=== PATIENT | female | born 1965 | race American Indian/Alaskan Native ===

== ENCOUNTER 2020-03-14 01:46 | Emergency (ER) | payer SELFPAY ==
--- NOTE | 2020-03-14 01:53 | Emergency Department Report ---
ED Altered Mental Status HPI - General Chief Complaint: Altered Mental Status Stated Complaint: UNRESPONSIVE PUI?: No Time Seen by Provider: 03/14/20 01:46 Source: EMS Mode of arrival: Stretcher Limitations: Altered Mental Status, Physical Limitation - History of Present Illness Initial Comments: Patient is a 55-year-old female that presents emergency room with altered mental status and decreased responsiveness. Report received from EMS. EMS states the patient's initial blood pressure is 238/120. Patient was found unresponsive. Patient is responsive only to painful stimuli. Last known well time 9:30 PM 03/13/2020. Patient had a stroke 2 weeks ago and was seen at [facility]. Complaint: altered mental status, decreased responsiveness -: Sudden - Related Data Home Medications Medication Instructions Recorded Confirmed Last Taken Aspirin 81 mg PO DAILY 03/14/20 03/14/20 Unknown AtorvaSTATin 80 mg PO DAILY 03/14/20 03/14/20 Unknown Lisinopril 10 mg PO DAILY 03/14/20 03/14/20 Unknown Ticagrelor 60 mg PO BID 03/14/20 03/14/20 Unknown glipiZIDE 5 mg PO BID 03/14/20 03/14/20 Unknown metFORMIN 1,000 mg PO BID 03/14/20 03/14/20 Unknown Allergies Allergy/AdvReac Type Severity Reaction Status Date / Time No Known Allergies Allergy Verified 03/14/20 02:38 ED Review of Systems ROS: Stated complaint: UNRESPONSIVE Other details as noted in HPI Comment: Unobtainable due to pts medical conditions ED Past Medical Hx - Past Medical History Previous Medical History?: Yes Hx Hypertension: Yes Hx CVA: Yes - Surgical History Past Surgical History?: No - Family History Family history: no significant - Social History Smoking Status: Unknown if ever smoked Substance Use Type: None - Medications Home Medications: Home Medications Medication Instructions Recorded Confirmed Last Taken Type Aspirin 81 mg PO DAILY 03/14/20 03/14/20 Unknown History AtorvaSTATin 80 mg PO DAILY 03/14/20 03/14/20 Unknown History Lisinopril 10 mg PO DAILY 03/14/20 03/14/20 Unknown History Ticagrelor 60 mg PO BID 03/14/20 03/14/20 Unknown History glipiZIDE 5 mg PO BID 03/14/20 03/14/20 Unknown History metFORMIN 1,000 mg PO BID 03/14/20 03/14/20 Unknown History ED Physical Exam - General Limitations: Altered Mental Status, Physical Limitation General appearance: obtunded - Head Head exam: Present: atraumatic, normocephalic - Eye Eye exam: Present: normal appearance, other (Pupils are unequal) - ENT ENT exam: Present: mucous membranes dry - Neck Neck exam: Present: normal inspection - Respiratory Respiratory exam: Present: normal lung sounds bilaterally. Absent: respiratory distress - Cardiovascular Cardiovascular Exam: Present: regular rate, normal rhythm. Absent: systolic murmur, diastolic murmur, rubs, gallop - GI/Abdominal GI/Abdominal exam: Present: soft, normal bowel sounds. Absent: distended, tenderness, guarding - Extremities Exam Extremities exam: Present: normal inspection - Back Exam Back exam: Present: normal inspection - Neurological Exam Neurological exam: Present: altered - Expanded Neurological Exam Expanded Best Eye Response (Lee): (1) no response Best Motor Response (Lee): (4) withdraws to pain Best Verbal Response (Lee): (1) no verbal response Haley Total: 6 - Psychiatric Psychiatric exam: Present: normal affect, normal mood - Skin Skin exam: Present: warm, dry, intact, normal color. Absent: rash - Assessment Assessment Interval: Baseline - Level of Consciousness 1a. Level of Consciousness: coma/unresponsive - LOC Questions 1b. LOC Questions: aphasic - LOC Command 1c. LOC Commands: performs no tasks correctly - Best Gaze 2. Best Gaze: normal - Visual 3. Visual: no visual loss - Facial Palsy 4. Facial Palsy: normal symmetrical movement - Motor Arm 5a. Motor Arm Left: no movement 5b. Motor Arm Right: no movement - Motor Leg 6a. Motor Leg Left: no movement 6b. Motor Leg Right: no movement - Limb Ataxia 7. Limb Ataxia: absent - Sensory 8. Sensory: normal - Best Language 9. Best Language: coma/unresponsive - Dysarthria 10. Dysarthria: mute/anarrthric - Extinction and Inattention 11. Extinction/Inattention: no abnormality - Scoring Total Score: 28 Stroke Severity: Severe Stroke ED Course Vital Signs 03/14/20 03/14/20 03/14/20 02:42 02:50 04:13 Temperature 93 F L Pulse Rate 103 H 106 H 111 H Respiratory 16 16 Rate Blood Pressure 130/74 130/74 Blood Pressure 101/57 [Left] O2 Sat by Pulse 99 100 100 Oximetry - Reevaluation(s) Reevaluation #1: Initial evaluation done. Code stroke initiated. Nicardipine drip ordered. 03/14/20 01:46 Reevaluation #2: Patient back from CT. Patient will be intubated. 03/14/20 02:01 Patient is better without difficulty. See procedure note. 03/14/20 02:20 Reevaluation #3: Patient's blood pressure is improving with nicardipine drip. 03/14/20 02:36 Reevaluation #4: Patient's blood pressure continues to improve. 03/14/20 02:47 Patient is on the vent. Patient is on Ativan drip. Patient has already received Keppra. Patient is on Cardene drip and blood pressure is controlled. 03/14/20 03:25 - Consultations Consultation #1: I discussed case with [facility] transfer truchas and [facility] is on diversion. 03/14/20 02:34 I discussed case with [facility] and [facility]. [facility] and [facility] are on neuro ICU diversion. 03/14/20 03:50 Consultation #2: I discussed case with Dr. Owen at [facility]. Dr. Owen is for the patient to be transferred. 03/14/20 03:10 - Intubation Time Out Performed: Yes Sedative: Etomidate Paralytic: Rocuronium Laryngoscope: fiberoptic video scope Size: 3 ET Tube Size: 7.5 Tube Secured Depth (cm): 22 Tube Secured Location: teeth Tube Placement Confirmation: visualized tube passing t, equal breath sounds bilat, no breath sounds over epi, confirmation by capnometr Patient Tolerated Procedure: well, no complications Intubation Complications: none - Lab Data Result diagrams: 03/14/20 02:43 03/14/20 02:43 Lab Results 03/14/20 03/14/20 03/14/20 Range/Units 02:43 02:43 02:43 WBC 30.0 H (4.5-11.0) K/mm3 RBC 3.74 (3.65-5.03) M/mm3 Hgb 11.6 (10.1-14.3) gm/dl Hct 34.0 (30.3-42.9) % MCV 91 (79-97) fl MCH 31 (28-32) pg MCHC 34 (30-34) % RDW 14.4 (13.2-15.2) % Plt Count 526 H (140-440) K/mm3 Lymph % (Auto) 14.1 (13.4-35.0) % Lajas % (Auto) 4.3 (0.0-7.3) % Eos % (Auto) 0.3 (0.0-4.3) % Baso % (Auto) 0.4 (0.0-1.8) % Lymph # (Auto) 4.2 (1.2-5.4) K/mm3 Lajas # (Auto) 1.3 H (0.0-0.8) K/mm3 Eos # (Auto) 0.1 (0.0-0.4) K/mm3 Baso # (Auto) 0.1 (0.0-0.1) K/mm3 Seg Neutrophils % 80.9 H (40.0-70.0) % Seg Neutrophils # 24.2 H (1.8-7.7) K/mm3 PT 13.7 (12.2-14.9) Sec. INR 1.04 (0.87-1.13) APTT 27.7 (24.2-36.6) Sec. Thrombin Time 14.3 L (15.1-19.6) Sec. ABG pH (7.350-7.450) pH Units ABG pCO2 mm Hg ABG pO2 (80.0-90.0) mm Hg ABG HCO3 (20.0-26.0) mmol/L ABG O2 Saturation (95.0-99.0) % ABG O2 Content (0.0-44) ABG Base Excess (-2.0-3.0) mmol/L ABG Hemoglobin (12.0-16.0) gm/dl ABG Carboxyhemoglobin (0.0-5.0) % ABG Methemoglobin (0.0-1.5) % Oxyhemoglobin (95.0-99.0) % FiO2 % Sodium 137 (137-145) mmol/L Potassium 3.9 (3.6-5.0) mmol/L Chloride 98.8 (98-107) mmol/L Carbon Dioxide 21 L (22-30) mmol/L Anion Gap 21 mmol/L BUN 12 (7-17) mg/dL Creatinine 0.5 L (0.6-1.2) mg/dL Estimated GFR > 60 ml/min BUN/Creatinine Ratio 24 % Glucose 268 H (65-100) mg/dL Lactic Acid (0.7-2.0) mmol/L Calcium 9.8 (8.4-10.2) mg/dL Total Bilirubin 0.30 (0.1-1.2) mg/dL AST 23 (5-40) units/L ALT 12 (7-56) units/L Alkaline Phosphatase 119 (35-129) units/L Ammonia (25-60) umol/L Total Creatine Kinase 100 (30-135) units/L CK-MB (CK-2) 1.6 (0.0-4.0) ng/mL CK-MB (CK-2) Rel Index 1.6 (0-4) Troponin T < 0.010 (0.00-0.029) ng/mL Total Protein 7.4 (6.3-8.2) g/dL Albumin 4.4 (3.9-5) g/dL Albumin/Globulin Ratio 1.5 % Salicylates (2.8-20.0) mg/dL Acetaminophen (10.0-30.0) ug/mL 03/14/20 03/14/20 03/14/20 Range/Units 02:43 02:43 02:43 WBC (4.5-11.0) K/mm3 RBC (3.65-5.03) M/mm3 Hgb (10.1-14.3) gm/dl Hct (30.3-42.9) % MCV (79-97) fl MCH (28-32) pg MCHC (30-34) % RDW (13.2-15.2) % Plt Count (140-440) K/mm3 Lymph % (Auto) (13.4-35.0) % Lajas % (Auto) (0.0-7.3) % Eos % (Auto) (0.0-4.3) % Baso % (Auto) (0.0-1.8) % Lymph # (Auto) (1.2-5.4) K/mm3 Lajas # (Auto) (0.0-0.8) K/mm3 Eos # (Auto) (0.0-0.4) K/mm3 Baso # (Auto) (0.0-0.1) K/mm3 Seg Neutrophils % (40.0-70.0) % Seg Neutrophils # (1.8-7.7) K/mm3 PT (12.2-14.9) Sec. INR (0.87-1.13) APTT (24.2-36.6) Sec. Thrombin Time (15.1-19.6) Sec. ABG pH (7.350-7.450) pH Units ABG pCO2 mm Hg ABG pO2 (80.0-90.0) mm Hg ABG HCO3 (20.0-26.0) mmol/L ABG O2 Saturation (95.0-99.0) % ABG O2 Content (0.0-44) ABG Base Excess (-2.0-3.0) mmol/L ABG Hemoglobin (12.0-16.0) gm/dl ABG Carboxyhemoglobin (0.0-5.0) % ABG Methemoglobin (0.0-1.5) % Oxyhemoglobin (95.0-99.0) % FiO2 % Sodium (137-145) mmol/L Potassium (3.6-5.0) mmol/L Chloride (98-107) mmol/L Carbon Dioxide (22-30) mmol/L Anion Gap mmol/L BUN (7-17) mg/dL Creatinine (0.6-1.2) mg/dL Estimated GFR ml/min BUN/Creatinine Ratio % Glucose (65-100) mg/dL Lactic Acid 3.10 H* (0.7-2.0) mmol/L Calcium (8.4-10.2) mg/dL Total Bilirubin (0.1-1.2) mg/dL AST (5-40) units/L ALT (7-56) units/L Alkaline Phosphatase (35-129) units/L Ammonia 26.0 (25-60) umol/L Total Creatine Kinase 87 (30-135) units/L CK-MB (CK-2) (0.0-4.0) ng/mL CK-MB (CK-2) Rel Index (0-4) Troponin T (0.00-0.029) ng/mL Total Protein (6.3-8.2) g/dL Albumin (3.9-5) g/dL Albumin/Globulin Ratio % Salicylates (2.8-20.0) mg/dL Acetaminophen (10.0-30.0) ug/mL 03/14/20 03/14/20 03/14/20 Range/Units 02:43 02:43 03:35 WBC (4.5-11.0) K/mm3 RBC (3.65-5.03) M/mm3 Hgb (10.1-14.3) gm/dl Hct (30.3-42.9) % MCV (79-97) fl MCH (28-32) pg MCHC (30-34) % RDW (13.2-15.2) % Plt Count (140-440) K/mm3 Lymph % (Auto) (13.4-35.0) % Lajas % (Auto) (0.0-7.3) % Eos % (Auto) (0.0-4.3) % Baso % (Auto) (0.0-1.8) % Lymph # (Auto) (1.2-5.4) K/mm3 Lajas # (Auto) (0.0-0.8) K/mm3 Eos # (Auto) (0.0-0.4) K/mm3 Baso # (Auto) (0.0-0.1) K/mm3 Seg Neutrophils % (40.0-70.0) % Seg Neutrophils # (1.8-7.7) K/mm3 PT (12.2-14.9) Sec. INR (0.87-1.13) APTT (24.2-36.6) Sec. Thrombin Time (15.1-19.6) Sec. ABG pH 7.375 (7.350-7.450) pH Units ABG pCO2 36.7 mm Hg ABG pO2 172.6 H (80.0-90.0) mm Hg ABG HCO3 21.0 (20.0-26.0) mmol/L ABG O2 Saturation 99.1 H (95.0-99.0) % ABG O2 Content 16.9 (0.0-44) ABG Base Excess -3.7 L (-2.0-3.0) mmol/L ABG Hemoglobin 12.3 (12.0-16.0) gm/dl ABG Carboxyhemoglobin 3.1 (0.0-5.0) % ABG Methemoglobin 0.5 (0.0-1.5) % Oxyhemoglobin 95.5 (95.0-99.0) % FiO2 30 % Sodium (137-145) mmol/L Potassium (3.6-5.0) mmol/L Chloride (98-107) mmol/L Carbon Dioxide (22-30) mmol/L Anion Gap mmol/L BUN (7-17) mg/dL Creatinine (0.6-1.2) mg/dL Estimated GFR ml/min BUN/Creatinine Ratio % Glucose (65-100) mg/dL Lactic Acid (0.7-2.0) mmol/L Calcium (8.4-10.2) mg/dL Total Bilirubin (0.1-1.2) mg/dL AST (5-40) units/L ALT (7-56) units/L Alkaline Phosphatase (35-129) units/L Ammonia (25-60) umol/L Total Creatine Kinase (30-135) units/L CK-MB (CK-2) (0.0-4.0) ng/mL CK-MB (CK-2) Rel Index (0-4) Troponin T (0.00-0.029) ng/mL Total Protein (6.3-8.2) g/dL Albumin (3.9-5) g/dL Albumin/Globulin Ratio % Salicylates 2.9 (2.8-20.0) mg/dL Acetaminophen 5.0 L (10.0-30.0) ug/mL - EKG Data -: EKG Interpreted by Ak EKG shows normal: sinus rhythm, intervals, ST-T waves Rate: tachycardia Interpretation: other (Right bundle branch block, axis deviation.) - Radiology Data Radiology results: report reviewed, image reviewed CT head/brain wo con INDICATION: Stroke-Like symptoms. TECHNIQUE: Head CT without contrast. All CT scans at this location are performed using CT dose reduction for ALARA by means of automated exposure control. COMPARISON: None available. FINDINGS: There is a large parenchymal hemorrhage in the right frontal lobe measuring 3.1 cm with adjacent vasogenic edema. There is also a right cerebral convexity subdural hematoma measuring about 1.2 cm in side to side dimension. There is a subacute appearing right MCA territory infarct. There is significant leftward midline shift about 1.1 cm at the level of the septum pellucidum. There is also early right-sided downward transtentorial herniation. There is entrapment of the left lateral ventricle. IMPRESSION: 1. Multifocal intracranial hemorrhage including a right frontal parenchymal hemorrhage and large right cerebral convexity subdural hematoma. 2. Subacute appearing right MCA territory infarct. 3. Significant adverse mass effect with leftward midline shift, entrapment of th e left lateral ventricle, right sided downward transtentorial herniation. CHEST 1 VIEW 03/14/2020 1:52 AM INDICATION / CLINICAL INFORMATION: ams. COMPARISON: None available. FINDINGS: SUPPORT DEVICES: ET tube tip is about 3 cm above the yamilet. NG tube is seen extending below the diaphragm. HEART / MEDIASTINUM: No significant abnormality. LUNGS / PLEURA: There are mild bibasilar opacities. No pneumothorax. ADDITIONAL FINDINGS: No significant additional findings. IMPRESSION: 1. Mild bibasilar pulmonary opacities that could reflect atelectasis, aspiration, or developing infectious process. - Medical Decision Making Patient is a 55-year-old female that presents emergency room with altered mental status, unresponsive, elevated blood pressure. Patient's last known well time 9:30 PM yesterday. Upon initial evaluation, the a code stroke was initiated. Patient's plain CT of the head was done. Patient CT of the head shows intracranial hemorrhage and a subdural hematoma. Midline shift also noted on the CT scan. Patient mental status deteriorating and patient was intubated to protect the airway. See procedure note. Patient was then placed on Ativan drip for sedation. Patient was then placed on a nicardipine drip for malignant hypertension. Blood pressure improved on drip. Patient also given mannitol and Keppra. Patient had a chest x-ray after intubation. Chest x-ray shows good placement of the ET tube and pneumonia. Patient had labs done essentially unremarkable except for lactic acidosis. I discussed this case with multiple transfer center and many hospitals are on diversion. Finally I discussed the case with [facility]. [facility] has accepted the patient. Patient will be transferred via ground EMS to [facility]. - Differential Diagnosis Intracranial hemorrhage, stroke, altered mental status, respiratory failure - Core Measures AMI Core Measures Followed: Yes Critical Care Time: Yes Critical care time in (mins) excluding proc time.: 80 Critical care attestation.: If time is entered above; I have spent that time in minutes in the direct care of this critically ill patient, excluding procedure time. Critical Care Time: 80 minutes ED Disposition Clinical Impression: Hypertensive emergency, Unresponsive, Lactic acidosis ICH (intracerebral hemorrhage) Qualifiers: Intracerebral hemorrhage etiology: nontraumatic Cerebral hemorrhage location: unspecified cerebral location Laterality: unspecified laterality Qualified Code(s): I61.9 - Nontraumatic intracerebral hemorrhage, unspecified Altered mental state Qualifiers: Altered mental status type: unspecified Qualified Code(s): R41.82 - Altered mental status, unspecified Disposition: DC/TX-70 ANOTHER TYPE HLTHCARE Is pt being admited?: No Does the pt Need Aspirin: No Condition: Critical Instructions: Hypertension (ED) Time of Disposition: 03:31
--- NOTE | 2020-03-14 02:11 | Consultation ---
History of Present Illness History of present illness: [facility] Date of Service: 03/14/2020 01:47:14 Impression: SAH, SDH, ICH Comments/Sign-Out: Patient is a 62 year old woman who presented with EMS as she was found unresponsive on the ground by her family at home, last time they saw her walking and talking was last night at 930 pm, she is now not responding. Per report she had a stroke 2 weeks ago but dont know deficit from that - Cardene gtt and BP to be < 140/80 - STAT NSG consult - No AP or AC Metrics: Last Known Well: 03/13/2020 21:30:00 [employer] Notification Time: 03/14/2020 01:47:14 Arrival Time: 03/14/2020 01:45:00 Stamp Time: 03/14/2020 01:47:14 Time First Login Attempt: 03/14/2020 01:52:00 Video Start Time: 03/14/2020 01:52:00 Symptoms: AMS NIHSS Start Assessment Time: 03/14/2020 02:00:00 Patient is not a candidate for Alteplase/Activase. Patient was not deemed candidate for Alteplase/Activase thrombolytics because of Current or Previous ICH. Video End Time: 03/14/2020 02:06:28 CT head was reviewed and results were: SDH, PHUONG and SAH Clinical Presentation is not Suggestive of Large Vessel Occlusive Disease ED Physician notified of diagnostic impression and management plan on 03/14/2020 02:06:30 Our recommendations are outlined below. Recommendations: Activate Stroke Protocol Admission/Order Set Stroke/Telemetry Floor Neuro Checks Bedside Swallow Eval DVT Prophylaxis IV Fluids, Normal Saline Head of Bed 30 Degrees Euglycemia and Avoid Hyperthermia (PRN Acetaminophen) Routine Consultation with Inhouse Neurology for Follow up Care Sign Out: Discussed with Emergency Department Provider History of Present Illness: Patient is a 55 year old Female. Patient was brought by EMS for symptoms of AMS Patient is a 55 year old woman who presented with EMS as she was found unresponsive on the ground by her family at home, last time they saw her walking and talking was last night at 930 pm, she is now not responding. Per report she had a stroke 2 weeks ago but dont know deficit from that Examination: BP(230/110), Pulse(80s), Blood Glucose(na) NIHSS cannot be completed due to patient status. Patient is not responding to painful or verbal stimuli and not awake Pre-Morbid Modified Ranking Scale: 5 Points = Severe disability; bedridden, incontinent and requiring constant nurs ing care and attention Patient/Family was informed the Neurology Consult would happen via TeleHealth consult by way of interactive audio and video telecommunications and consented to receiving care in this manner. Due to the immediate potential for life-threatening deterioration due to underlying acute neurologic illness, I spent 30 minutes providing critical care. This time includes time for face to face visit via telemedicine, review of medical records, imaging studies and discussion of findings with providers, the patient and/or family. Dr Stephen Ibarra [employer] Case [id number] Medications and Allergies Active Meds: Active Medications Nicardipine HCl 50 mg/ Sodium (Chloride) 250 mls @ 25 mls/hr IV TITR CLARE; Protocol
[2020-03-14] MEDS ORDERED: niCARdipine DRIP 40 MG/200 ML BAG ONE (02:15)
[2020-03-14] MEDS ORDERED: LORazepam 2 MG/ML VIAL ONE (02:18)
--- NOTE | 2020-03-14 02:20 | Cat Scan Report ---
CT head/brain wo con INDICATION: Stroke-Like symptoms. TECHNIQUE: Head CT without contrast. All CT scans at this location are performed using CT dose reduction for ALA RA by means of automated exposure control. COMPARISON: None available. FINDINGS: There is a large parenchymal hemorrhage in the right frontal lobe measuring 3.1 cm with adjacent vaso genic edema. There is also a right cerebral convexity subdural hematoma measuring about 1.2 cm in dennise e to side dimension. There is a subacute appearing right MCA territory infarct. There is significant leftward midline shift about 1.1 cm at the level of the septum pellucidum. There is also early right- sided downward transtentorial herniation. There is entrapment of the left lateral ventricle. IMPRESSION: 1. Multifocal intracranial hemorrhage including a right frontal parenchymal hemorrhage and large righ t cerebral convexity subdural hematoma. 2. Subacute appearing right MCA territory infarct. 3. Significant adverse mass effect with leftward midline shift, entrapment of the left lateral ventri samantha, right sided downward transtentorial herniation. Findings called to Dr. Carroll at 1:15 AM on 03/14/2020. Signer Name: Curtis Lyon MD Signed: 03/14/2020 2:19 AM Workstation Name: [id number]
[2020-03-14] MEDS ORDERED: LIP THERAPY VASELINE TP PRN (02:21)
[2020-03-14] MEDS ORDERED: MINERAL OIL/PETROLATUM, WHITE OPHTH OINT 3.5 GM OU PRN (02:21)
[2020-03-14] MEDS ORDERED: levETIRAcetam 1000 MG/NS 0.75% 1,000 MG/100 ML BAG IV ONE (02:21)
[2020-03-14] MEDS ORDERED: LORazepam 2 MG/ML VIAL IV PRN (02:21)
--- NOTE | 2020-03-14 02:59 | XRay Report ---
CHEST 1 VIEW 03/14/2020 1:52 AM INDICATION / CLINICAL INFORMATION: ams. COMPARISON: None available. FINDINGS: SUPPORT DEVICES: ET tube tip is about 3 cm above the yamilet. NG tube is seen extending below the diap hragm. HEART / MEDIASTINUM: No significant abnormality. LUNGS / PLEURA: There are mild bibasilar opacities. No pneumothorax. ADDITIONAL FINDINGS: No significant additional findings. IMPRESSION: 1. Mild bibasilar pulmonary opacities that could reflect atelectasis, aspiration, or developing infec tious process. Signer Name: Curtis Lyon MD Signed: 03/14/2020 2:57 AM Workstation Name: [id number]
[2020-03-14] MEDS ORDERED: niCARdipine DRIP 40 MG/200 ML BAG IV ONE (03:00)
[2020-03-14] MEDS ORDERED: niCARdipine 50 MG in SODIUM CHLORIDE 0.9% 250ML 230 ML IV SCH (03:00)
[2020-03-14] MEDS ORDERED: LORazepam 100 MG in SODIUM CHLORIDE 0.9% 50 ML, EMPTY BAG 0 ML IV SCH (03:00)
[2020-03-14] MEDS ORDERED: MANNITOL IV ONE (03:07)
[2020-03-14 03:15] LABS: Hemoglobin 11.6 gm/dl (10.1-14.3); Mean Corpuscular HGB Conc 34 % (30-34); Mean Corpuscular Volume 91 fl (79-97); Platelet Count 526 K/mm3 (140-440); Red Blood Count 3.74 M/mm3 (3.65-5.03); Red Cell Distribution Width 14.4 % (13.2-15.2)
[2020-03-14] MEDS ORDERED: MANNITOL 20% 500 ML IV ONE (03:15)
[2020-03-14 03:16] LABS: INR 1.04 (0.87-1.13)
[2020-03-14 03:17] LABS: Partial Thromboplastin Time 27.7 Sec. (24.2-36.6); Thrombin Time 14.3 Sec. (15.1-19.6)
[2020-03-14 03:18] LABS: Lymphocytes % (Auto) 14.1 % (13.4-35.0)
[2020-03-14 03:19] LABS: Basophils # (Auto) 0.1 K/mm3 (0.0-0.1); Basophils % (Auto) 0.4 % (0.0-1.8); Creatine Kinase MB 1.6 ng/mL (0.0-4.0); Eosinophils # (Auto) 0.1 K/mm3 (0.0-0.4); Eosinophils % (Auto) 0.3 % (0.0-4.3); Lymphocytes # (Auto) 4.2 K/mm3 (1.2-5.4); Monocytes # (Auto) 1.3 K/mm3 (0.0-0.8); Monocytes % (Auto) 4.3 % (0.0-7.3)
[2020-03-14] MEDS ORDERED: CEFEPIME/NS 2 GM/100 ML 2 GM/100 ML BAG IV ONE (03:19)
[2020-03-14 03:20] LABS: Alanine Aminotransferase 12 units/L (7-56); Albumin 4.4 g/dL (3.9-5); Blood Urea Nitrogen 12 mg/dL (7-17); Calcium 9.8 mg/dL (8.4-10.2); Hemolysis Index 62
[2020-03-14] MEDS ORDERED: AZITHROMYCIN 500 MG in SODIUM CHLORIDE 0.9% 250ML 250 ML IV ONE (03:40)
[2020-03-14 03:51] LABS: ABG Base Excess -3.7 mmol/L (-2.0-3.0); ABG Methemoglobin 0.5 % (0.0-1.5); ABG Oxygen Saturation 99.1 % (95.0-99.0); ABG PCO2 36.7 mm Hg; ABG PH 7.375 pH Units (7.350-7.450); ABG PO2 172.6 mm Hg (80.0-90.0)
[2020-03-14 03:51] LABS: BUN/Creatinine Ratio 24
[2020-03-14] MEDS ORDERED: MANNITOL 20% 250 ML IV ONE (04:00)
[2020-03-14 04:14] VITALS: BP 101/57
[2020-03-14] MEDS ORDERED: AMIODARONE 150 MG/3 ML INJ IV ONE ×2 (05:39→05:40)
[2020-03-14] MEDS ORDERED: SODIUM CHLORIDE 0.9% 1000 ML 1,000 ML ONE (05:43)
[2020-03-14] MEDS ORDERED: METOPROLOL TARTRATE 5 MG/5 ML INJ IV ONE (05:48)
[2020-03-14] MEDS ORDERED: AMIODARONE 900 MG in DEXTROSE 5% IN WATER 482 ML IV SCH (06:00)
[2020-03-14] MEDS ORDERED: ROCURONIUM 50 MG/5 ML INJ IV ONE (14:42)
[2020-03-14] MEDS ORDERED: ETOMIDATE 20 MG/10 ML INJ IV ONE (14:42)
== END 2020-03-14 07:05 | disposition other institution (70) ==
LOC: ED 01:46
DX: I10 Essential (primary) hypertension (principal); E87.2 Acidosis; I61.9 Nontraumatic intracerebral hemorrhage, unspecified; R41.82 Altered mental status, unspecified; Z79.82 Long term (current) use of aspirin; Z79.899 Other long term (current) drug therapy
CPT/HCPCS: 31500; 36415; 70450; 71045; 80053; 82140; 82550; 82553; 82803; 84484; 85025; 85610; 85670; 85730; 93005; 94002; 96365; 96366; 96368; 96375; 99291; 99292; J0282; J0456; J0692; J1953; J2060; J2150; J7030; J7050; J7060; 80320; G0480